=== PATIENT | female | born 1945 | race Caucasian/White ===

== ENCOUNTER 2022-06-01 20:09 | Emergency (ER) | payer MEDICARE, OTHER ==
[2022-06-01 23:29] LABS: CORONAVIRUS 2019 SARS-COV-2 NEGATIVE (NEGATIVE); INFLUENZA A NAA NEGATIVE (NEGATIVE)
== END 2022-06-02 01:58 | disposition home or self-care (01) ==
LOC: FER 20:09
PROVIDERS: Emergency Medicine
DX: J02.9 Acute pharyngitis, unspecified (principal); R51.9 Headache, unspecified; I10 Essential (primary) hypertension; Z20.822 Contact with and (suspected) exposure to COVID-19
CPT/HCPCS: 99283; U0002

== ENCOUNTER 2022-06-04 17:35 | Emergency (ER) | payer MEDICARE, OTHER ==
[2022-06-04] MEDS ORDERED: VENTOLIN HFA IN18 GM INH (19:39)
[2022-06-04] MEDS ORDERED: TESSALON PERLE100 MG PO (20:25)
== END 2022-06-04 20:29 | disposition home or self-care (01) ==
LOC: FER 17:35
DX: U07.1 COVID-19 (principal); I10 Essential (primary) hypertension
CPT/HCPCS: 71046